=== PATIENT | female | born 1940 | race Caucasian/White ===

== ENCOUNTER 2016-07-11 20:37 | Inpatient (IN) | payer OTHER, MEDICARE ==
[~2016-07-11] VITALS: Ht 165.1 cm; Wt 81.4 kg
[2016-07-11 20:47] VITALS: BP 106/62; PULSE 87; RESP 18; TEMP 97.9; O2SAT 96
[2016-07-11] MEDS ORDERED: SODIUM CHLOR 0.9% 1000 ML INJ 1,000 ML IV SCH (20:55)
--- NOTE | 2016-07-11 20:59 | PD ---
HPI Chief Complaint: GI Complaint Time Seen by Provider: 20:55 Travel History International Travel<30 days: No Contact w/Intl Traveler<30days: No Traveled to known affect area: No History of Present Illness HPI 75yo F with PMH of IDDM, CAD s/p AICD presents to the ED with c/o black diarrhea , nausea and episode of hematemesis today. As per EVAC, pt's blood pressure dropped to systolic in the 80s and was given NS IVF. BP is 106/62 with HR 109 here. Pt denies any history of GI bleed, cirrhosis, alcoholism, abdominal pain or chest pain. Pt has mild sob. PFSH Past Medical History High Cholesterol: Yes Diabetes: Yes Patient Takes Glucophage: No Hypertension: Yes ?: Not Past Surgical History Cardiac Surgery: Yes (OPEN HEART ) Pacemaker: Yes Social History Alcohol Use: No Tobacco Use: No Substance Use: No Allergies-Medications (Allergen,Severity, Reaction): Coded Allergies: No Known Allergies (Unverified , 07/11/16) Reported Meds & Prescriptions Reported Meds & Active Scripts Active Review of Systems Except as stated in HPI: all other systems reviewed are Neg Physical Exam Narrative GENERAL: 75yo F in mild distress. SKIN: Warm and dry. HEAD: Atraumatic. Normocephalic. EYES: Pupils equal and round. No scleral icterus. No injection or drainage. ENT: No nasal bleeding or discharge. Mucous membranes pink and moist. NECK: Trachea midline. No JVD. CARDIOVASCULAR: Regular rate and rhythm. No murmur appreciated. RESPIRATORY: No accessory muscle use. Clear to auscultation. Breath sounds equal bilaterally. GASTROINTESTINAL: Abdomen soft, non-tender, nondistended. No rebound tenderness or guarding. RECTAL: Black stool. +Hemaprompt. MUSCULOSKELETAL: No obvious deformities. No clubbing. No cyanosis. No edema. NEUROLOGICAL: Awake and alert. No obvious cranial nerve deficits. Motor grossly within normal limits. Normal speech. PSYCHIATRIC: Appropriate mood and affect; insight and judgment normal. Data Data Last Documented VS Vital Signs Date Time Temp Pulse Resp B/P Pulse Ox O2 Delivery O2 Flow Rate FiO2 07/11/16 20:47 97.9 87 18 106/62 96 Orders Basic Metabolic Panel (Bmp) (07/11/16 20:55) Complete Blood Count With Diff (07/11/16 20:55) Prothrombin Time / Inr (Pt) (07/11/16 20:55) Act Partial Throm Time (Ptt) (07/11/16 20:55) Type And Screen (07/11/16 20:55) Chest, Single Ap (07/11/16 20:55) Ecg Monitoring (07/11/16 20:55) Iv Access Insert/Monitor (07/11/16 20:55) Oximetry (07/11/16 20:55) Ondansetron Inj (Zofran Inj) (07/11/16 21:00) Sodium Chlor 0.9% 1000 Ml Inj (Ns 1000 M (07/11/16 20:55) Sodium Chloride 0.9% Flush (Ns Flush) (07/11/16 21:00) Octreotide Inj (Sandostatin Inj) (07/11/16 21:00) Pantoprazole Inj (Protonix Inj) (07/11/16 21:00) Pantoprazole Inj (Protonix Inj) (07/11/16 21:00) Electrocardiogram (07/11/16 ) Troponin I (07/11/16 20:55) Insulin Human Regular Inj (Novolin R Inj (07/11/16 22:15) Sodium Chlor 0.9% 1000 Ml Inj (Ns 1000 M (07/11/16 22:15) Place In Observation (07/11/16 ) Vital Signs (Adult) Q4H (07/11/16 22:18) Activity Oob With Assistance (07/11/16 22:18) ^ [employer] Professor / Telemetry .CONTINUOUS (07/11/16 22:18) Diet Npo (07/12/16 Breakfast) Sodium Chloride 0.9% Flush (Ns Flush) (07/11/16 22:30) Sodium Chloride 0.9% Flush (Ns Flush) (07/12/16 09:00) Basic Metabolic Panel (Bmp) (07/12/16 06:00) Complete Blood Count With Diff (07/12/16 06:00) Scd Bilateral/Knee High IRIS.BID (07/11/16 22:18) Naloxone Inj (Narcan Inj) (07/11/16 22:30) Admit Order (Ed Use Only) (07/11/16 22:19) Consult Gastroenterology (07/11/16 ) Labs Laboratory Tests Test 07/11/16 21:05 White Blood Count 11.7 TH/MM3 Red Blood Count 3.15 MIL/MM3 Hemoglobin 10.1 GM/DL Hematocrit 30.8 % Mean Corpuscular Volume 97.8 FL Mean Corpuscular Hemoglobin 32.1 PG Mean Corpuscular Hemoglobin 32.8 % Concent Red Cell Distribution Width 14.6 % Platelet Count 189 TH/MM3 Mean Platelet Volume 8.7 FL Neutrophils (%) (Auto) 87.6 % Lymphocytes (%) (Auto) 9.9 % Monocytes (%) (Auto) 2.1 % Eosinophils (%) (Auto) 0.0 % Basophils (%) (Auto) 0.4 % Neutrophils # (Auto) 10.3 TH/MM3 Lymphocytes # (Auto) 1.2 TH/MM3 Monocytes # (Auto) 0.2 TH/MM3 Eosinophils # (Auto) 0.0 TH/MM3 Basophils # (Auto) 0.0 TH/MM3 CBC Comment DIFF FINAL Differential Comment Prothrombin Time 12.1 SEC Prothromb Time International 1.1 RATIO Ratio Activated Partial 25.8 SEC Thromboplast Time Sodium Level 139 MEQ/L Potassium Level 5.4 MEQ/L Chloride Level 103 MEQ/L Carbon Dioxide Level 25.1 MEQ/L Anion Gap 11 MEQ/L Blood Urea Nitrogen 75 MG/DL Creatinine 1.91 MG/DL Estimat Glomerular Filtration 26 ML/MIN Rate Random Glucose 408 MG/DL Calcium Level 8.2 MG/DL Troponin I LESS THAN 0.02 NG/ML Blood Type A POSITIVE Antibody Screen NEGATIVE Blood Bank Comment MDM Medical Decision Making Medical Screen Exam Complete: Yes Emergency Medical Condition: Yes Interpretation(s) EKG: Paced rhythm. LAD. No signs of ischemia. Last Impressions Chest X-Ray 07/11/162054 Signed Impressions: Service Date/Time: Monday, July 11, 2016 21:04 - CONCLUSION: No acute disease. Gian Lora MD Laboratory Tests Test 07/11/16 21:05 White Blood Count 11.7 TH/MM3 (4.0-11.0) Red Blood Count 3.15 MIL/MM3 (4.00-5.30) Hemoglobin 10.1 GM/DL (11.6-15.3) Hematocrit 30.8 % (35.0-46.0) Mean Corpuscular Volume 97.8 FL (80.0-100.0) Mean Corpuscular Hemoglobin 32.1 PG (27.0-34.0) Mean Corpuscular Hemoglobin 32.8 % Concent (32.0-36.0) Red Cell Distribution Width 14.6 % (11.6-17.2) Platelet Count 189 TH/MM3 (150-450) Mean Platelet Volume 8.7 FL (7.0-11.0) Neutrophils (%) (Auto) 87.6 % (16.0-70.0) Lymphocytes (%) (Auto) 9.9 % (9.0-44.0) Monocytes (%) (Auto) 2.1 % (0.0-8.0) Eosinophils (%) (Auto) 0.0 % (0.0-4.0) Basophils (%) (Auto) 0.4 % (0.0-2.0) Neutrophils # (Auto) 10.3 TH/MM3 (1.8-7.7) Lymphocytes # (Auto) 1.2 TH/MM3 (1.0-4.8) Monocytes # (Auto) 0.2 TH/MM3 (0-0.9) Eosinophils # (Auto) 0.0 TH/MM3 (0-0.4) Basophils # (Auto) 0.0 TH/MM3 (0-0.2) CBC Comment DIFF FINAL Differential Comment Prothrombin Time 12.1 SEC (9.8-11.6) Prothromb Time International 1.1 RATIO Ratio Activated Partial 25.8 SEC Thromboplast Time (24.3-30.1) Sodium Level 139 MEQ/L (136-145) Potassium Level 5.4 MEQ/L (3.5-5.1) Chloride Level 103 MEQ/L (98-107) Carbon Dioxide Level 25.1 MEQ/L (21.0-32.0) Anion Gap 11 MEQ/L (5-15) Blood Urea Nitrogen 75 MG/DL (7-18) Creatinine 1.91 MG/DL (0.50-1.00) Estimat Glomerular Filtration 26 ML/MIN (>89) Rate Random Glucose 408 MG/DL (74-106) Calcium Level 8.2 MG/DL (8.5-10.1) Troponin I LESS THAN 0.02 NG/ML (0.02-0.05) Blood Type A POSITIVE Antibody Screen NEGATIVE Blood Bank Comment Differential Diagnosis Upper GI bleed vs. perforated peptic ulcer Narrative Course 75yo F with black diarrhea and hematemesis today. BP initially low as per EVAC and responded to IVF. Hemaprompt positive. Labs reviewed, mild leukocytosis at 11.7. H/H 10.1/30.8. K mildly elevated at 5.4. Glucose is 408 with no increased anion gap and CO2 25.1. Will treat with regular insulin 6 units and another liter of IVF NS. This will also decreased potassium level. Troponin negative. CXR showed no free air. Pt given protonix bolus and protonix drip. Discussed with GI Dr. Ernst early when pt arrived. Pt accepted for GI bleed to medicine. HemaPrompt Point of Care Internal Pos. & Neg. Controls: Passed Fecal Specimen Occult Blood: Positive Diagnosis Primary Impression: GI bleed Qualified Code: K92.2 - Gastrointestinal hemorrhage, unspecified gastrointestinal hemorrhage type Admitting Information Admitting Physician Requests: Admit Lydia Trevino DO Jul 11, 2016 20:59 Lydia Trevino DO Jul 11, 2016 20:59
[2016-07-11] MEDS ORDERED: PANTOPRAZOLE INJ 80 MG in SODIUM CHLORIDE 0.9% INJ 35 ML IV ONE (21:00)
[2016-07-11] MEDS ORDERED: OCTREOTIDE INJ 500 MCG in SODIUM CHLORID 0.9% 500 ML INJ 500 ML IV SCH (21:00)
[2016-07-11] MEDS ORDERED: SODIUM CHLORIDE 0.9% FLUSH 5 ML FLUSH IVF PRN (21:00)
[2016-07-11] MEDS ORDERED: ONDANSETRON HCL 4 MG/2 ML VIAL IVP ONE (21:00)
[2016-07-11 21:26] LABS: AUTOMATED NEUTROPHIL # 10.3 TH/MM3 (1.8-7.7); BASOPHIL % 0.4 % (0.0-2.0); HEMATOCRIT 30.8 % (35.0-46.0); HEMO FLAGS DIFF FINAL; LYMPH % 9.9 % (9.0-44.0); LYMPHOCYTE # 1.2 TH/MM3 (1.0-4.8); MEAN CELL VOLUME 97.8 FL (80.0-100.0); MEAN CORPUSCULAR HEMOGLOBIN 32.1 PG (27.0-34.0); MEAN CORPUSCULAR HGB CONC 32.8 % (32.0-36.0); MONO % 2.1 % (0.0-8.0); NEUT % 87.6 % (16.0-70.0); PLATELET COUNT 189 TH/MM3 (150-450); RED BLOOD COUNT 3.15 MIL/MM3 (4.00-5.30); RED CELL DISTRIBUTION WIDTH 14.6 % (11.6-17.2); WHITE BLOOD COUNT 11.7 TH/MM3 (4.0-11.0)
[2016-07-11 21:38] LABS: APTT (PATIENT) 25.8 SEC (24.3-30.1); INTERNATIONAL NORMALIZED RATIO 1.1 RATIO; PROTHROMBIN TIME - PATIENT 12.1 SEC (9.8-11.6)
--- NOTE | 2016-07-11 21:39 | RADRPT ---
EXAM DATE/TIME: 07/11/2016 21:04 [place] COMPARISON: No previous studies available for comparison. INDICATIONS : Chest pain. MEDICAL HISTORY : None. SURGICAL HISTORY : CABG. Pacemaker. ENCOUNTER: Initial ACUITY: 1 day PAIN SCORE: 6/10 LOCATION: Bilateral chest FINDINGS: 2 AP portable erect views of the chest were obtained and demonstrate a left subclavian transvenous pa cer in place. The patient status post median sternotomy. There are no confluent infiltrates or effusi ons. The heart and mediastinal structures are within normal limits. The bony thorax is unremarkable. CONCLUSION: No acute disease. Gian Lora MD on July 11, 2016 at 21:37 Board Certified Radiologist. This report was verified electronically.
[2016-07-11 22:02] LABS: ANION GAP 11 MEQ/L (5-15); BICARBONATE 25.1 MEQ/L (21.0-32.0); BLOOD UREA NITROGEN 75 MG/DL (7-18); CHLORIDE 103 MEQ/L (98-107); GLOMERULAR FILTRATION RATE 26 ML/MIN (>89); POTASSIUM 5.4 MEQ/L (3.5-5.1); SODIUM (NA) 139 MEQ/L (136-145)
[2016-07-11] MEDS: PANTOPRAZOLE INJ 80 MG in SODIUM CHLORIDE 0.9% INJ 100 ML IV SCH (22:05)
[2016-07-11] MEDS ORDERED: SODIUM CHLOR 0.9% 1000 ML INJ 1,000 ML IV ONE (22:15)
[2016-07-11] MEDS ORDERED: INSULIN HUMAN REGULAR 1,000 UNITS/10 ML VIAL SQ ONE (22:15)
[2016-07-11] MEDS ORDERED: GLUCAGON 1 MG/ML VIAL OTHER PRN (22:30)
[2016-07-11] MEDS ORDERED: NALOXONE HCL 0.4 MG/ML AMP IV PRN (22:30)
[2016-07-11] MEDS ORDERED: SODIUM CHLORIDE 0.9% FLUSH 5 ML FLUSH FLUSH PRN (22:30)
[2016-07-11] MEDS ORDERED: DEXTROSE 50% IN WATER 50 ML VIAL(D50) IV PUSH PRN (22:30)
[2016-07-11] MEDS: DEXT 5%-NACL 0.9% 1000 ML INJ 1,000 ML IV SCH (23:49)
[2016-07-12] VITALS (16 sets, daily range): BP systolic 94–118; BP diastolic 48–70; PULSE 70–102; RESP 15–20; TEMP 98.5–99.6; O2SAT 93–98
--- NOTE | 2016-07-12 02:55 | HHI.HP ---
[facility] Service [facility] Primary Care Physician Unknown Admission Diagnosis GI bleed Diagnoses: Travel History International Travel<30 Days: No Contact w/Intl Traveler <30 Da: No Traveled to Known Affected Are: No Past Family Social History Allergies: Coded Allergies: No Known Allergies (Unverified , 07/11/16) Physical Exam Vital Signs Vital Signs Date Time Temp Pulse Resp B/P Pulse Ox O2 Delivery O2 Flow Rate FiO2 07/12/16 00:22 93 18 118/64 97 Nasal Cannula 2 07/11/16 20:47 97.9 87 18 106/62 96 Physical Exam GENERAL: This is a well-nourished, well-developed patient, in no apparent distress. SKIN: No rashes, ecchymoses or lesions. Cool and dry. HEAD: Atraumatic. Normocephalic. No temporal or scalp tenderness. EYES: Pupils equal round and reactive. Extraocular motions intact. No scleral icterus. No injection or drainage. ENT: Nose without bleeding, purulent drainage or septal hematoma. Throat without erythema, tonsillar hypertrophy or exudate. Uvula midline. Airway patent. NECK: Trachea midline. No JVD or lymphadenopathy. Supple, nontender, no meningeal signs. CARDIOVASCULAR: Regular rate and rhythm without murmurs, gallops, or rubs. RESPIRATORY: Clear to auscultation. Breath sounds equal bilaterally. No wheezes , rales, or rhonchi. GASTROINTESTINAL: Abdomen soft, non-tender, nondistended. No hepato-splenomegaly , or palpable masses. No guarding. MUSCULOSKELETAL: Extremities without clubbing, cyanosis, or edema. No joint tenderness, effusion, or edema noted. No calf tenderness. Negative Homans sign bilaterally. NEUROLOGICAL: Awake and alert. Cranial nerves II through XII intact. Motor and sensory grossly within normal limits. Five out of 5 muscle strength in all muscle groups. Normal speech. Laboratory Laboratory Tests Test 07/11/16 21:05 White Blood Count 11.7 Red Blood Count 3.15 Hemoglobin 10.1 Hematocrit 30.8 Mean Corpuscular Volume 97.8 Mean Corpuscular Hemoglobin 32.1 Mean Corpuscular Hemoglobin 32.8 Concent Red Cell Distribution Width 14.6 Platelet Count 189 Mean Platelet Volume 8.7 Neutrophils (%) (Auto) 87.6 Lymphocytes (%) (Auto) 9.9 Monocytes (%) (Auto) 2.1 Eosinophils (%) (Auto) 0.0 Basophils (%) (Auto) 0.4 Neutrophils # (Auto) 10.3 Lymphocytes # (Auto) 1.2 Monocytes # (Auto) 0.2 Eosinophils # (Auto) 0.0 Basophils # (Auto) 0.0 CBC Comment DIFF FINAL Differential Comment Prothrombin Time 12.1 Prothromb Time International 1.1 Ratio Activated Partial 25.8 Thromboplast Time Sodium Level 139 Potassium Level 5.4 Chloride Level 103 Carbon Dioxide Level 25.1 Anion Gap 11 Blood Urea Nitrogen 75 Creatinine 1.91 Estimat Glomerular Filtration 26 Rate Random Glucose 408 Calcium Level 8.2 Troponin I LESS THAN 0.02 Blood Type A POSITIVE Antibody Screen NEGATIVE Blood Bank Comment Result Diagram: 07/11/16210407/11/162104 Mary Werner MD Jul 12, 2016 02:55
--- NOTE | 2016-07-12 02:56 | HHI.HP ---
[facility] Admission Diagnosis GI bleed Diagnoses: Chief Complaint: Black color stool Travel History International Travel<30 Days: No Contact w/Intl Traveler <30 Da: No Traveled to Known Affected Are: No History of Present Illness History from patient, ER physician communication, interview of medical records. Patient reported that for the past 24 hours, she has been having black color stools. She stated that she did not want to come to hospital but her friend forced her to come here. She reports she was also quite dizzy and actually had a near syncope episode while in shower. She stated she caught herself and held onto the shower curtain. She did not pass out. She did not hit her head. She also reports of vomiting coffee-ground color vomits together with this. When asked, any time she had types of episodes, she stated she was really not able to count at all. She denies any abdominal pains with this. Patient is on Plavix at home. She stated this was started about a year ago after her heart surgery. She stated she had some valve replacement done at [facility]. She states that she had the left side of her heart with bigger chambers and this was one of the reasons why she needed the surgery. She really is not able to tell me any other specific diagnoses regarding her cardiac history. She states to ask her supervisor extruding department Dr. Martin. She is not on diuretics at home. She however does have AICD. She is unsure whether this was placed due to cardiac arrhythmia or cardiomyopathy. Per ER report, patient was quite hypotensive while on ambulance. She was given normal saline fluid boluses by EMS. By the time she arrived to ER, her blood pressure was 106/62. Patient however reports of history of hypertension for which she takes antihypertensives at home. She was not tachycardic in ER. Review of Systems Constitutional: COMPLAINS OF: Fatigue, Night Sweats, DENIES: Diaphoretic episodes, Fever, Weight gain, Weight loss, Dizziness Respiratory: DENIES: Apneas, Cough, Wheezing, Hemoptysis, Sputum production, Shortness of breath Cardiovascular: DENIES: Chest pain, Palpitations, Syncope, Dyspnea on Exertion , PND, Lower Extremity Edema, Orthopnea Gastrointestinal: COMPLAINS OF: Black stools, Nausea, Vomiting, DENIES: Abdominal pain, Bloody stools, Constipation, Diarrhea Genitourinary: DENIES: Urinary frequency, Urinary incontinence, Urgency, Hematuria, Dysuria, Nocturia Musculoskeletal: DENIES: Joint pain, Muscle aches, Stiffness, Joint Swelling, Back pain, Neck pain Hematologic/lymphatic: COMPLAINS OF: Bruising Neurologic: DENIES: Abnormal gait, Headache, Localized weakness, Paresthesias, Seizures Past Family Social History Past Medical History Hypertension Diabetes COPD Depression Valvular heart diseasestatus post repair versus replacement about a year ago Status post AICD access status post pacemaker placement Past Surgical History Valvular heart disease surgery. AICD/pacemaker placements. Cholecystectomy. Tonsillectomy. Reported Medications Patient's medications list on EMRreviewed. Allergies: Coded Allergies: No Known Allergies (Unverified , 07/11/16) Family History Denies family history of medical issues. Social History Reports she is still smoking cigarettes. Stated she was smoking up to about 3 packs a day at times. Denies any alcohol abuse or drug abuse. Lives by herself. Still driving. Physical Exam Vital Signs Vital Signs Date Time Temp Pulse Resp B/P Pulse Ox O2 Delivery O2 Flow Rate FiO2 07/12/16 00:22 93 18 118/64 97 Nasal Cannula 2 07/11/16 20:47 97.9 87 18 106/62 96 Physical Exam GENERAL: This is a well-nourished, well-developed patient, in no apparent distress. SKIN: No rashes, ecchymoses or lesions. Cool and dry. Pallor of skin HEAD: Atraumatic. Normocephalic. No temporal or scalp tenderness. EYES: No scleral icterus. No injection or drainage. ENT: Nose without bleeding, purulent drainage or septal hematoma. Airway patent. Dry oral mucosa NECK: Trachea midline. No JVD Supple, nontender, no meningeal signs. CARDIOVASCULAR: Regular rate and rhythm without murmurs, gallops, or rubs. RESPIRATORY: Clear to auscultation. Breath sounds equal bilaterally. No wheezes , rales, or rhonchi. GASTROINTESTINAL: Abdomen soft, non-tender, nondistended. . No guarding. MUSCULOSKELETAL: Extremities without clubbing, cyanosis, or edema. No calf tenderness. NEUROLOGICAL: Awake and alert. . Motor and sensory grossly within normal limits Normal speech. Laboratory Laboratory Tests Test 07/11/16 21:05 White Blood Count 11.7 Red Blood Count 3.15 Hemoglobin 10.1 Hematocrit 30.8 Mean Corpuscular Volume 97.8 Mean Corpuscular Hemoglobin 32.1 Mean Corpuscular Hemoglobin 32.8 Concent Red Cell Distribution Width 14.6 Platelet Count 189 Mean Platelet Volume 8.7 Neutrophils (%) (Auto) 87.6 Lymphocytes (%) (Auto) 9.9 Monocytes (%) (Auto) 2.1 Eosinophils (%) (Auto) 0.0 Basophils (%) (Auto) 0.4 Neutrophils # (Auto) 10.3 Lymphocytes # (Auto) 1.2 Monocytes # (Auto) 0.2 Eosinophils # (Auto) 0.0 Basophils # (Auto) 0.0 CBC Comment DIFF FINAL Differential Comment Prothrombin Time 12.1 Prothromb Time International 1.1 Ratio Activated Partial 25.8 Thromboplast Time Sodium Level 139 Potassium Level 5.4 Chloride Level 103 Carbon Dioxide Level 25.1 Anion Gap 11 Blood Urea Nitrogen 75 Creatinine 1.91 Estimat Glomerular Filtration 26 Rate Random Glucose 408 Calcium Level 8.2 Troponin I LESS THAN 0.02 Blood Type A POSITIVE Antibody Screen NEGATIVE Blood Bank Comment Result Diagram: 07/11/16210407/11/162104 Imaging Last 48 hours Impressions Chest X-Ray 07/11/162054 Signed Impressions: Service Date/Time: Monday, July 11, 2016 21:04 - CONCLUSION: No acute disease. Gian Lora MD Assessment and Plan Problem List: (1) GI bleed ICD Code: K92.2 Status: Acute (2) Hypotension ICD Code: I95.9 Status: Acute Assessment and Plan Impression: Upper GI bleed Mild hemorrhagic shockresolved with fluid resuscitation by EMS. Plan: Serial hemoglobin hematocrit. Start patient on Protonix IV drip. GI consult. Transfuse 3 units of PRBC since repeat hemoglobin hematocrit did drop and patient's history is clearly that of GI bleed. Patient was maintaining hemoglobin falsely upon arrival because she was dehydrated and hemoconcentrated. Continue IV fluids with D5 half normal saline at 42 cc per hour. Hold antihypertensives. Watch for fluid overload. Patient does have an AICD. She is not sure why she has it. Possible she does have cardiomyopathy from her description. We'll monitor fingersticks. No long-acting insulin or oral hypoglycemics. Consult patient's supervisor extruding department since patient would need to be off Plavix due to this acute GI bleed. We'll need to coordinate between her supervisor extruding department and GI asked to see timing of restart of Plavix. DVT prophylaxiswith SCD. GI prophylaxis on pantoprazole. Discussed Condition With Patient, ER physician, patient's nurse Physician Certification 2 Midnight Certification Type: Admission for Inpatient Services Order for Inpatient Services The services are ordered in accordance with Medicare regulations or non- Medicare payer requirements, as applicable. In the case of services not specified as inpatient-only, they are appropriately provided as inpatient services in accordance with the 2-midnight benchmark. Estimated LOS (days): 3 days is the estimated time the patient will need to remain in the hospital, assuming treatment plan goals are met and no additional complications. Post-Hospital Plan: Home Mary Werner MD Jul 12, 2016 02:56
[2016-07-12 03:05] LABS: HEMATOCRIT 21.6 % (35.0-46.0); REVIEW FLAG FINAL
[2016-07-12] MEDS ORDERED: FUROSEMIDE 20 MG/2 ML VIAL IV PUSH PRN (03:15)
[2016-07-12 04:00] LABS: BICARBONATE 24.4 MEQ/L (21.0-32.0); POTASSIUM 4.7 MEQ/L (3.5-5.1)
[2016-07-12 04:07] LABS: AUTOMATED NEUTROPHIL # 8.3 TH/MM3 (1.8-7.7); BASOPHIL # 0.1 TH/MM3 (0-0.2); BASOPHIL % 0.4 % (0.0-2.0); EOSINOPHIL % 0.1 % (0.0-4.0); HEMATOCRIT 22.7 % (35.0-46.0); HEMO FLAGS DIFF FINAL; LYMPH % 22.1 % (9.0-44.0); LYMPHOCYTE # 2.5 TH/MM3 (1.0-4.8); MEAN CELL VOLUME 99.5 FL (80.0-100.0); MEAN CORPUSCULAR HEMOGLOBIN 32.4 PG (27.0-34.0); MEAN CORPUSCULAR HGB CONC 32.6 % (32.0-36.0); MONO % 5.3 % (0.0-8.0); NEUT % 72.1 % (16.0-70.0); PLATELET COUNT 151 TH/MM3 (150-450); RED BLOOD COUNT 2.28 MIL/MM3 (4.00-5.30); RED CELL DISTRIBUTION WIDTH 14.6 % (11.6-17.2); WHITE BLOOD COUNT 11.5 TH/MM3 (4.0-11.0)
[2016-07-12] MEDS: PANTOPRAZOLE INJ 80 MG in SODIUM CHLORIDE 0.9% INJ 100 ML IV SCH (07:31)
[2016-07-12] MEDS ORDERED: DIAZ5TAB PO (07:32)
[2016-07-12] MEDS ORDERED: METO25TA3 PO (07:32)
[2016-07-12] MEDS ORDERED: LISI10TA3 PO ×2 (07:32→07:34)
[2016-07-12] MEDS ORDERED: OXYC-392 PO (07:32)
[2016-07-12] MEDS ORDERED: LANTUS2P (07:34)
[2016-07-12] MEDS ORDERED: FURO20TA PO (07:34)
[2016-07-12] MEDS ORDERED: ATOR20TA15 PO (07:34)
[2016-07-12] MEDS ORDERED: GABA400C5 PO (07:34)
[2016-07-12] MEDS ORDERED: NOVOINJ3 SQ (07:34)
[2016-07-12] MEDS: SODIUM CHLORIDE 0.9% FLUSH 5 ML FLUSH FLUSH SCH ×2 (09:00→21:31)
--- NOTE | 2016-07-12 10:35 | PD.CONS ---
HPI History of Present Illness This is a 75 year old female patient on Plavix, who came to the ER for evaluation of black tarry stool with associated dizziness and a near syncopal episode. She reports that she started having black tarry stool. She denies any associated nausea, vomiting, abdominal pain, heartburn, or reflux. She reports that her appetite has been okay, but that she didn't have much of an appetite yesterday. She did have associated dizziness and weakness, that seemed to be aggravated by activity. She reports a remote history of peptic ulcer disease, at least 50 years ago. She has never had a egd/colonoscopy. No family hx of esophageal, gastric, or colorectal cancer. She does not take any Aleve or ibuprofen. She denies any ETOH use. (Zulema Koroma) PFSH Past Medical History Hypertension Diabetes COPD Depression Valvular heart diseasestatus post repair versus replacement about a year ago Status post AICD access status post pacemaker placement Past Surgical History Valvular heart disease surgery. AICD/pacemaker placements. Cholecystectomy. Tonsillectomy. (Zulema Koroma) Coded Allergies: No Known Allergies (Unverified , 07/11/16) Medications Allergies Coded Allergies Type Severity Reaction Last Updated Verified No Known Allergies 07/11/16 No Active Scripts Medications Dose Route/Sig Days Date Category Lantus Inj (Insulin Glargine) 100 Unit/Ml Inj 07/12/16 Reported Novolog Flexpen Inj (Insulin Aspart) 300 Unit/3 Ml Pen 1 Units SQ 07/12/16 Reported Gabapentin 400 Mg Cap 400 Cap PO HS 07/12/16 Reported Atorvastatin (Atorvastatin Calcium) 20 Mg Tab 20 Mg PO HS 07/12/16 Reported Furosemide 20 Mg Tab 20 Mg PO BID 07/12/16 Reported Lisinopril 10 Mg Tab 10 Mg PO DAILY 07/12/16 Reported Lisinopril 10 Mg Tab 10 Mg PO DAILY 07/12/16 Reported Metoprolol Tartrate 25 Mg Tab 25 Mg PO BID 07/12/16 Reported Diazepam 5 Mg Tab 5 Mg PO BID PRN 07/12/16 Reported Oxycodone (Oxycodone HCl) 5 Mg Tab 5 Mg PO Q4H PRN 07/12/16 Reported Family History Denies family history of medical issues. Social History Reports she is still smoking cigarettes. Stated she was smoking up to about 3 packs a day at times. Denies any alcohol abuse or drug abuse. (Zulema Koroma) Review of Systems Constitutional: COMPLAINS OF: Fatigue, DENIES: Weight loss, Change in appetite Respiratory: DENIES: Cough Cardiovascular: DENIES: Chest pain Gastrointestinal: COMPLAINS OF: Black stools, Diarrhea, DENIES: Abdominal pain , Bloody stools, Constipation, Nausea, Vomiting, Heartburn, Hematemesis Musculoskeletal: COMPLAINS OF: Joint pain, DENIES: Back pain Hematologic/lymphatic: COMPLAINS OF: Bruising Neurologic: DENIES: Headache Psychiatric: DENIES: Confusion (Zulema Koroma) GI Exam Vitals I&O Vital Signs Date Time Temp Pulse Resp B/P Pulse Ox O2 Delivery O2 Flow Rate FiO2 07/12/16 10:19 98.7 102 15 111/67 98 07/12/16 09:20 98.7 102 15 111/67 98 Room Air 07/12/16 09:04 99.0 92 15 115/55 98 Room Air 07/12/16 08:05 99.6 97 16 94/48 98 Room Air 07/12/16 07:05 98.7 90 16 101/62 98 Room Air 07/12/16 06:56 85 18 97/53 97 3 07/12/16 05:58 87 18 98/53 95 Nasal Cannula 3 07/12/16 05:23 90 18 115/54 95 Nasal Cannula 3 07/12/16 04:58 99.0 70 18 98/52 95 Nasal Cannula 3 07/12/16 04:45 82 18 98/52 98 Nasal Cannula 3 07/12/16 03:00 83 18 110/70 96 Nasal Cannula 3 07/12/16 01:55 76 18 105/60 96 Nasal Cannula 3 07/12/16 00:22 93 18 118/64 97 Nasal Cannula 2 07/11/16 20:47 97.9 87 18 106/62 96 I/O 07/11/16 07/11/16 07/11/16 07/12/16 07/12/16 07/12/16 07:00 15:00 23:00 07:00 15:00 23:00 Intake Total 275 ml Balance 275 ml Intake Packed Cells 275 ml # Bowel Movements 3 Imaging Last Impressions Chest X-Ray 07/11/162054 Signed Impressions: Service Date/Time: Monday, July 11, 2016 21:04 - CONCLUSION: No acute disease. Gian Lora MD Laboratory Test 07/11/16 07/12/16 07/12/16 07/12/16 21:05 02:50 02:54 03:22 White Blood Count 11.7 TH/MM3 11.5 TH/MM3 Red Blood Count 3.15 MIL/MM3 2.28 MIL/MM3 Hemoglobin 10.1 GM/DL 7.1 GM/DL 7.4 GM/DL Hematocrit 30.8 % 21.6 % 22.7 % Mean Corpuscular Volume 97.8 FL 99.5 FL Mean Corpuscular Hemoglobin 32.1 PG 32.4 PG Mean Corpuscular Hemoglobin 32.8 % 32.6 % Concent Red Cell Distribution Width 14.6 % 14.6 % Platelet Count 189 TH/MM3 151 TH/MM3 Mean Platelet Volume 8.7 FL 9.0 FL Neutrophils (%) (Auto) 87.6 % 72.1 % Lymphocytes (%) (Auto) 9.9 % 22.1 % Monocytes (%) (Auto) 2.1 % 5.3 % Eosinophils (%) (Auto) 0.0 % 0.1 % Basophils (%) (Auto) 0.4 % 0.4 % Neutrophils # (Auto) 10.3 TH/MM3 8.3 TH/MM3 Lymphocytes # (Auto) 1.2 TH/MM3 2.5 TH/MM3 Monocytes # (Auto) 0.2 TH/MM3 0.6 TH/MM3 Eosinophils # (Auto) 0.0 TH/MM3 0.0 TH/MM3 Basophils # (Auto) 0.0 TH/MM3 0.1 TH/MM3 CBC Comment DIFF FINAL DIFF FINAL Differential Comment Prothrombin Time 12.1 SEC Prothromb Time International 1.1 RATIO Ratio Activated Partial 25.8 SEC Thromboplast Time Sodium Level 139 MEQ/L 143 MEQ/L Potassium Level 5.4 MEQ/L 4.7 MEQ/L Chloride Level 103 MEQ/L 111 MEQ/L Carbon Dioxide Level 25.1 MEQ/L 24.4 MEQ/L Anion Gap 11 MEQ/L 8 MEQ/L Blood Urea Nitrogen 75 MG/DL 80 MG/DL Creatinine 1.91 MG/DL 1.84 MG/DL Estimat Glomerular Filtration 26 ML/MIN 27 ML/MIN Rate Random Glucose 408 MG/DL 328 MG/DL Calcium Level 8.2 MG/DL 7.7 MG/DL Troponin I LESS THAN 0.02 NG/ML Blood Type A POSITIVE A POSITIVE A POSITIVE Antibody Screen NEGATIVE Blood Bank Comment Crossmatch Leukocyte-Reduced Red Blood Cells Physical Examination HEENT: Normocephalic; atraumatic; no jaundice. CHEST: CTA CARDIAC: RRR ABDOMEN: Soft, nondistended, nontender; no hepatosplenomegaly; bowel sounds are present in all four quadrants. EXTREMITIES: No clubbing, cyanosis, or edema. SKIN: Normal; no rash; no jaundice. SOCIAL MEDIA JOB TITLES: No focal deficits; alert and oriented times three. (Zulema Koroma) Assessment and Plan Plan ASSESSMENT: - Upper GIB, Melena. Pt on Plavix. Remote hx of PUD- 50 years ago. Never had egd/colonoscopy. Started having melena yesterday, no other GI symptoms, but generalized weakness and dizziness. Protonix. HH 7.4/ 22.7. - Anemia secondary to acute blood loss. S/P PRBC. HH 7.4/.7. - CAD, HTN, DM per primary PLAN: - Plan for egd today - Obtain consents - NPO - Protonix gtt - Monitor hh - Transfuse as necessary - Supportive care - Further recommendations to follow based on results of above - PT seen and examined by Dr. Johnson and myself and this note is written on his behalf (Zulema Koroma) Physician Comments Patient seen and examined Agree with above Continue with current supportive care Monitor labs EGD today (Madan Johnson MD) Zulema Koroma Jul 12, 2016 10:35 Madan Johnson MD Jul 12, 2016 22:13
[2016-07-12] MEDS ORDERED: SODIUM CHLOR 0.9% 1000 ML BAG IV ONE (11:56)
[2016-07-12] MEDS ORDERED: PROPOFOL 200 MG/20 ML AMP IV ONE (11:56)
--- NOTE | 2016-07-12 12:53 | PD.PROCEDR ---
GI Procedure REFERRING PHYSICIAN Dr. Reaves PROCEDURE PERFORMED EGD with biopsy INDICATION FOR PROCEDURE Melena and anemia PROCEDURE: The procedure, risks and benefits were discussed with Ms. oCuch and informed consent was obtained. Anesthesia sedated her with Diprivan. She was placed in the left lateral decubitus position. EGD: The Pentax videoscope was introduced through the oropharynx and advanced to the second portion of the duodenum under direct visualization. Retroflexion was performed in the stomach. FINDINGS: The esophagus this was unremarkable except for a small ulcer at the GE junction this was clean-based no visible vessel and the Z line appeared to be slightly irregular biopsies were taken from the irregular Z line and the ulcer The stomach this was normal no blood or bleeding was seen The duodenum this was normal ESTIMATED BLOOD LOSS: None SPECIMENS REMOVED: Biopsies from the GE junction COMPLICATIONS: None IMPRESSION: Gastroesophageal junction ulcer Irregular Z line PLAN: Await biopsy Recommend PPI Continue supportive care Monitor labs and transfuse as needed EGD in 2 months Madan Johnson MD Jul 12, 2016 12:52
[2016-07-12 14:02] LABS: HEMATOCRIT 27.2 % (35.0-46.0); REVIEW FLAG FINAL
--- NOTE | 2016-07-12 15:00 | EKG ---
Date Performed: 07/11/2016 Time Performed: 21:58:14 PTAGE: 75 years EKG: ELECTRONIC VENTRICULAR PACEMAKER PROLONGED CORRECTED QT INTERVAL ABNORMAL RHYTHM ECG NO PREVIOUS TRACING DOCTOR: Zion Pang Interpretating Date/Time 07/12/2016 15:00:28
--- NOTE | 2016-07-12 15:59 | MB ---
cc: DAVID SIMPSON DATE OF CONSULTATION: 07/12/2016 DATE OF : 1940 REASON FOR CONSULTATION: Resumption of clopidogrel. HISTORY OF PRESENT ILLNESS: 75-year female with past medical history significant for diabetes, hypertension , COPD, depression and cardiomyopathy status post AICD placement ([employer]) mitral valve replacement with bioprosthesis in 2013 and a myectomy, the patient presented to the to the emergency department with black diarrhea and nausea and hematemesis also hypotensive. She was consulted to Gastroenterology for endoscopy which revealed a GI ulcer. She was also given blood. Currently she is in the room hemodynamically stable hemoglobin at this time is trending up after transfusion. She denies any chest pain, shortness of breath. She reports being compliant to the medication which includes Plavix. She denies any recent or history of stents in the past, other than the bioprosthesis. Cardiology has been consulted to give recommendations regarding clopidogrel resumption. REVIEW OF SYSTEMS Review of systems negative except for what is mentioned in HPI. PAST MEDICAL HISTORY 1. Hypertension 2. Diabetes 3. Chronic obstructive pulmonary disease 4. Depression 5. AICD 6. Cardiomyopathy. 7. Status post mitral valve replacement. PAST SURGICAL HISTORY Mitral valve replacement Hyperlipidemia Diabetes PAST SURGICAL HISTORY Mitral valve surgery Pacemaker placement SOCIAL HISTORY No alcohol. No tobacco. No substance use. ALLERGIES NO KNOWN DRUG ALLERGIES. MEDICATIONS: home medication atorvastatin 20 Lasix 20 lisinopril 10 Metoprolol 25 According to the patient. She is also taking Plavix. PHYSICAL EXAMINATION: VITAL SIGNS: Temperature 98, respiratory rate 90, heart rate 92, blood pressure 92/70, O2 sat 99% RA. IN GENERAL: Generally she is awake, alert, oriented x3 in no acute distress. NECK: No JVD noted carotid bruits. HEART: Regular rate and rhythm. No murmurs, rubs or gallops. LUNGS: Clear to auscultation bilaterally. ABDOMEN: Soft, positive bowel sounds. nondistended. EXTREMITIES: No cyanosis or edema. Pulses throughout. LABORATORY FINDINGS She has a hemoglobin of 9.2 trending up from 7.1, hematocrit 21.6 trending up to 27.2, platelet count of 151, INR 1.1. Chemistries sodium 143, potassium 4.3, BUN 80, creatinine 1.84, troponin less than 0.02. RADIOLOGIC: Endoscopy performed showed a gastrointestinal ulcer. EKG shows a ventricular paced rhythm. ASSESSMENT/PLAN 75-year-old female with known valvular disease status post mitral valve replacement 2014 bioprosthesis. Presents with severe anemia in the setting of hemorrhagic shock. Esophagogastroduodenoscopy revealed a GI ulcer, that has been successfully treated. She remains fairly hemodynamically stable. Given significant life threatening bleed I agree stopping clopidogrel/aspirin and continue her other medications as tolerated by blood pressure. Unclear reason she is on clopidogrel no history of recent stents per office records, she also denies recent PCI. She does not need chronic oral anticoagulation because she has a Bovine valve. Regarding the resumption of the Plavix I will relay that to gastro given recent significant GI bleed. Thank you for the opportunity to take part in the care of this patients care. MD MARIELA Grimm/natali /2:17 PM /3:37 PM MATILDA
[2016-07-12] MEDS: DEXT 5%-NACL 0.9% 1000 ML INJ 1,000 ML IV SCH (17:38)
[2016-07-12] MEDS ORDERED: ATORVASTATIN 20 MG TAB PO SCH (21:00)
[2016-07-12] MEDS: PANTOPRAZOLE SOD 40 MG DELAYED RELEASE TAB PO SCH (21:30)
[2016-07-13 00:05] VITALS: BP 95/54; PULSE 79; RESP 20; TEMP 98.1; O2SAT 95
[2016-07-13 02:33] LABS: HEMATOCRIT 26.7 % (35.0-46.0); MEAN CELL VOLUME 90.6 FL (80.0-100.0); MEAN CORPUSCULAR HGB CONC 34.2 % (32.0-36.0); PLATELET COUNT 102 TH/MM3 (150-450); RED BLOOD COUNT 2.95 MIL/MM3 (4.00-5.30); RED CELL DISTRIBUTION WIDTH 19.1 % (11.6-17.2); REVIEW FLAG FINAL; WHITE BLOOD COUNT 10.3 TH/MM3 (4.0-11.0)
[2016-07-13 03:19] LABS: MAGNESIUM 2.1 MG/DL (1.5-2.5); POTASSIUM 4.2 MEQ/L (3.5-5.1)
[2016-07-13 04:00] VITALS: BP 124/63; PULSE 77; RESP 20; TEMP 98.1; O2SAT 97
[2016-07-13 08:00] VITALS: BP 118/56; PULSE 79; RESP 20; TEMP 96.9; O2SAT 92
[2016-07-13] MEDS: SODIUM CHLORIDE 0.9% FLUSH 5 ML FLUSH FLUSH SCH (08:38)
[2016-07-13] MEDS: PANTOPRAZOLE SOD 40 MG DELAYED RELEASE TAB PO SCH (08:38)
[2016-07-13] MEDS ORDERED: PANT40TA3 PO (08:48)
--- NOTE | 2016-07-13 08:52 | HHI.PR ---
Subjective Remarks Follow-up for GI bleed related anemia. Patient is currently doing well. She could not sleep much last night. Denies any chest pain, shortness of breath, fever or chills. Denies any further GI bleed including melena or hematochezia. Objective Vitals Vital Signs Date Time Temp Pulse Resp B/P Pulse Ox O2 Delivery O2 Flow Rate FiO2 07/13/16 08:00 96.9 79 20 118/56 92 07/13/16 04:00 98.1 77 20 124/63 97 07/13/16 00:05 98.1 79 20 95/54 95 07/12/16 23:06 78 07/12/16 20:01 79 07/12/16 20:00 98.5 91 20 118/56 93 07/12/16 12:00 98.7 92 20 92/70 99 07/12/16 10:19 98.7 102 15 111/67 98 07/12/16 09:20 98.7 102 15 111/67 98 Room Air 07/12/16 09:04 99.0 92 15 115/55 98 Room Air I/O 07/12/16 07/12/16 07/12/16 07/13/16 07/13/16 07/13/16 07:00 15:00 23:00 07:00 15:00 23:00 Intake Total 275 ml 369 ml 1108 ml Balance 275 ml 369 ml 1108 ml Intake Oral 220 ml 940 ml IV Total 149 ml 168 ml Packed Cells 275 ml # Voids 2 3 # Bowel Movements 3 2 3 Result Diagram: 07/13/1622107/13/16221 Imaging Last Impressions Chest X-Ray 07/11/162054 Signed Impressions: Service Date/Time: Monday, July 11, 2016 21:04 - CONCLUSION: No acute disease. Gian Lora MD Objective Remarks GENERAL: Alert, oriented 3 no acute distress SKIN: Warm and dry. HEAD: Normocephalic. EYES: No scleral icterus. No injection or drainage. NECK: Supple, trachea midline. No JVD or lymphadenopathy. CARDIOVASCULAR: Regular rate and rhythm with a systolic murmur. no gallops, or rubs. RESPIRATORY: Breath sounds equal bilaterally. No accessory muscle use. GASTROINTESTINAL: Abdomen soft, non-tender, nondistended. MUSCULOSKELETAL: No cyanosis, or edema. BACK: Nontender without obvious deformity. No CVA tenderness. Procedures EGD 07/12/2016. A/P Problem List: (1) GI bleed ICD Code: K92.2 Status: Acute (2) Hypotension ICD Code: I95.9 Status: Acute Assessment and Plan Ms. Couch is a pleasant 75-year-old female with a history of cardiomyopathy, MVR who presents to the emergency department on 07/12/2016 due to GI bleed, hypotension. Hypotension resolved after she received fluid. Patient underwent EGD on 07/12/2016 which shows cholesterol esophageal junction ulcer. - Acute GI blood loss anemia - Status post EGD which shows GE junction ulcer. Two-month follow-up EGD recommended - Discussed with GI attending. Patient can start Plavix today. Start aspirin in 2 weeks - Cardiomyopathy - Mitral valve replacement - Continue home medications on discharge. DNR. Discharge patient to home Condition on discharge: Improved Diabetic Diet as tolerated Ad Sugar activity Rx written: - Protonix 40mg BID - START Aspirin 81mg daily on 07/27/2016 - Can resume Plavix today 07/13/2016. Total time spent more than 30 minutes including discussing with patient, coordinating with Gastroenterology. Follow-up with primary care physician within one week and GI follow up in 2 weeks. Problem Qualifiers (1) GI bleed: Qualified Code: K92.2 - Gastrointestinal hemorrhage, unspecified gastrointestinal hemorrhage type Anum Reaves DO Jul 13, 2016 8:52 am
== END 2016-07-13 12:24 | disposition home or self-care (01) | DRG 378 ==
LOC: NEPE 20:37 → INTOOBSV 22:21 → NEDA 22:21 → OBSVTOIN 07-12 02:57 → NEDH 07-12 06:22 → N07B 07-12 17:22
PROVIDERS: ADMIT Hospitalist; ATTEND Hospitalist
PROC: 0DB48ZX Excision of Esophagogastric Junction, Via Natural or Artificial Opening Endoscopic, Diagnostic (ICD-10-PCS; 2016-07-12)
PROC: 30253N1 (ICD-10-PCS; principal; 2016-07-12 11:50)
DX: K92.1 Melena (principal); D62 Acute posthemorrhagic anemia; R57.9 Shock, unspecified; I95.9 Hypotension, unspecified; I42.9 Cardiomyopathy, unspecified; J44.9 Chronic obstructive pulmonary disease, unspecified; E11.9 Type 2 diabetes mellitus without complications; I25.810 Atherosclerosis of coronary artery bypass graft(s) without angina pectoris; K28.9 Gastrojejunal ulcer, unspecified as acute or chronic, without hemorrhage or perforation; E86.0 Dehydration; Z95.2 Presence of prosthetic heart valve; Z66 Do not resuscitate; E78.5 Hyperlipidemia, unspecified; I10 Essential (primary) hypertension; K92.0 Hematemesis; Z95.810 Presence of automatic (implantable) cardiac defibrillator; Z95.1 Presence of aortocoronary bypass graft; Z79.02 Long term (current) use of antithrombotics/antiplatelets; Z79.4 Long term (current) use of insulin; F17.210 Nicotine dependence, cigarettes, uncomplicated
CPT/HCPCS: 36430; 71010; 80048; 82948; 83735; 84484; 85014; 85018; 85025; 85027; 85610; 85730; 86850; 86900; 86901; 86920; 88305; 93005; 96365; 96372; 96375; C9113; G0378; J1815; J2405; J7030; J7042; P9016

== ENCOUNTER 2017-01-23 21:45 | Emergency (ER) | payer MEDICARE, OTHER ==
[~2017-01-23] VITALS: Ht 167.6 cm; Wt 77.5 kg
[~2017-01-23 21:45] MED LIST: ATOR20TA15 PO; DIAZ5TAB PO; FURO20TA PO; GABA400C5 PO; LANTUS2P; LISI10TA3 PO; METO25TA3 PO; NOVOINJ3 SQ; OXYC-392 PO; PANT40TA3 PO
[2017-01-23 22:00] VITALS: BP 140/67; PULSE 82; RESP 18; TEMP 98; O2SAT 94
[2017-01-23 22:15] VITALS: O2SAT 89
[2017-01-23] MEDS ORDERED: FUROSEMIDE 40 MG/4 ML VIAL IVP ONE (22:15)
[2017-01-23] MEDS ORDERED: SODIUM CHLORIDE 0.9% FLUSH 10 ML FLUSH IVF PRN (22:15)
[2017-01-23] MEDS ORDERED: RESP: ALBUTEROL 2.5 MG/IPRATROPIUM 0.5 MG NEB (SCH) INH ONE (22:15)
--- NOTE | 2017-01-23 22:21 | PD ---
HPI Chief Complaint: General Weakness Time Seen by Provider: 22:13 Travel History International Travel<30 days: No Contact w/Intl Traveler<30days: No Traveled to known affect area: No History of Present Illness HPI 76-year-old female presents the emergency Department with complaints of increasing generalized weakness for the past 2-3 days. Patient has a history of CABG in 2013 at [facility], as well as history of endarterectomy on the left approximately 10 years ago. 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 Patient is a lifelong smoking history and continues to smoke a pack and a half of cigarettes per day. Patient states currently her pain in the lower extremities is 5 out of 10 but worse with any pressure or movement. Patient is currently being treated by home health wound care, last seen yesterday. Patient has had mild chills but denies fever, has nausea and loss of appetite, but no vomiting, diarrhea, or urinary complaints. Patient denies shortness of breath but just feels weak. Patient has no headache, but is complaining of intermittent pain in the neck. She denies cough or wheezing. Patient lives on her own. Patient is an insulin-dependent diabetic. She has a history of GERD. She has no known drug allergies. PFSH Past Medical History High Cholesterol: Yes Diabetes: Yes Patient Takes Glucophage: No Hypertension: Yes Tetanus Vaccination: Unknown Influenza Vaccination: No Past Surgical History Cardiac Surgery: Yes (OPEN HEART 2012, PACEMAKER WITH DEFIBULATOR) Pacemaker: Yes (WITH DEFIBULATOR) Other Surgery: Yes (endarterectomy) Social History Alcohol Use: No Tobacco Use: Yes Substance Use: No Allergies-Medications (Allergen,Severity, Reaction): Coded Allergies: No Known Allergies (Unverified , 01/23/17) Reported Meds & Prescriptions Reported Meds & Active Scripts Active Pantoprazole (Pantoprazole Sodium) 40 Mg Tab 40 Mg PO Q12HR 30 Days Reported Lantus Inj (Insulin Glargine) 100 Unit/Ml Inj Novolog Flexpen Inj (Insulin Aspart) 300 Unit/3 Ml Pen 1 Units SQ Gabapentin 400 Mg Cap 400 Cap PO HS Atorvastatin (Atorvastatin Calcium) 20 Mg Tab 20 Mg PO HS Furosemide 20 Mg Tab 20 Mg PO BID Lisinopril 10 Mg Tab 10 Mg PO DAILY Metoprolol Tartrate 25 Mg Tab 25 Mg PO BID Diazepam 5 Mg Tab 5 Mg PO BID PRN Oxycodone (Oxycodone HCl) 5 Mg Tab 5 Mg PO Q4H PRN Review of Systems ROS Limitations: Poor Historian Except as stated in HPI: all other systems reviewed are Neg General / Constitutional: Positive: Chills, No: Fever HENT: Positive: Lightheadedness, Neck Pain (see history present illness.), No : Headaches, Vertigo, Sore Throat, Rhinitis, Rhinorrhea, Congestion, Nosebleed, Neck Stiffness, Ear Discharge, Earache Cardiovascular: No: Chest Pain or Discomfort, Palpitations, Irregular Rhythm, Tachycardia, Diaphoresis, Syncope, Dyspnea on exertion, Claudication Respiratory: No: Cough, Shortness of Breath, Wheezing Gastrointestinal: Positive: Nausea, Loss of Appetite, No: Vomiting, Diarrhea, Abdominal Pain, Hematemesis, Hematochezia, Constipation, Changes in Bowel Habits , Indigestion, Dysphagia Genitourinary: No: Urgency, Frequency, Dysuria Musculoskeletal: Positive: Myalgias, Arthralgias, Limited ROM, Weakness, Cramping, Edema Skin: No Rash, No Dryness, No Lesions Physical Exam Narrative GENERAL: Patient is moderately obese. She appears in no obvious distress. SKIN: Warm and dry. Somewhat poor pallor. Decreased turgor with mild tenting. No obvious signs of cellulitis to either lower extremity, however dressings were not removed, as there is no obvious increased induration or warmth appreciated. HEAD: Atraumatic. Normocephalic. EYES: Pupils equal and round. No scleral icterus. No injection or drainage. ENT: No nasal bleeding or discharge. Mucous membranes pink and moist. Pharynx is clear. Airway is patent. NECK: Trachea midline. No JVD. Supple and nontender. CARDIOVASCULAR: Regular rate and rhythm. No murmurs gallops or rubs appreciated. RESPIRATORY: No accessory muscle use. Clear to auscultation. Breath sounds equal bilaterally. GASTROINTESTINAL: Abdomen soft, non-tender, nondistended. Hepatic and splenic margins not palpable. MUSCULOSKELETAL: Extremities without clubbing, cyanosis, with 1+ edema to both feet from mid galicia down. No obvious deformities. NEUROLOGICAL: Awake and alert. No obvious cranial nerve deficits. Motor grossly within normal limits. Five out of 5 muscle strength in the arms and legs. Normal speech. PSYCHIATRIC: Appropriate mood and affect; insight and judgment normal. Data Data Last Documented VS Vital Signs Date Time Temp Pulse Resp B/P Pulse Ox O2 Delivery O2 Flow Rate FiO2 01/23/17 22:38 95 Nasal Cannula 2.00 01/23/17 22:00 98.0 82 18 140/67 Orders Complete Blood Count With Diff (01/23/17 22:10) Comprehensive Metabolic Panel (01/23/17 22:10) B-Type Natriuretic Peptide (01/23/17 22:10) Act Partial Throm Time (Ptt) (01/23/17 22:10) Prothrombin Time / Inr (Pt) (01/23/17 22:10) Magnesium (Mg) (01/23/17 22:10) Ckmb (Isoenzyme) Profile (01/23/17 22:10) Troponin I (01/23/17 22:10) Urinalysis - C+S If Indicated (01/23/17 22:10) Iv Access Insert/Monitor (01/23/17 22:10) Electrocardiogram (01/23/17 22:10) Ecg Monitoring (01/23/17 22:10) Oximetry (01/23/17 22:10) Oxygen Administration (01/23/17 22:10) Chest, Single Ap (01/23/17 22:10) Sodium Chloride 0.9% Flush (Ns Flush) (01/23/17 22:15) Furosemide Inj (Lasix Inj) (01/23/17 22:15) Albuterol-Ipratropium Neb (Duoneb Neb) (01/23/17 22:15) MDM Medical Decision Making Medical Screen Exam Complete: Yes Emergency Medical Condition: Yes Medical Record Reviewed: Yes Differential Diagnosis Neuropathy. Vascular insufficiency of lower extremities. Generalized weakness. Electronic imbalance. Dehydration. Depression. Narrative Course Patient is medically stable at time of exam. Labs ordered including CBC, CMP, urinalysis, cardiac panel, and lipase. EKG is performed. Chest x-ray showed no acute process. 2300 hrs. labs are still pending, and care of the patient is turned over Dr. Talley. Condition: Stable Nando Barahona Jan 23, 2017 22:21
[2017-01-23 22:38] VITALS: O2SAT 95
--- NOTE | 2017-01-23 22:43 | RADRPT ---
EXAM DATE/TIME: 01/23/2017 22:10 [facility] COMPARISON: CHEST SINGLE AP, July 11, 2016, 21:04. INDICATIONS : Shortness of breath. MEDICAL HISTORY : Hypercholesterolemia. Hypertension Diabetes, smoker. SURGICAL HISTORY : CABG. Pacemaker. ENCOUNTER: Initial ACUITY: 1 day PAIN SCORE: 0/10 LOCATION: Bilateral chest FINDINGS: A single view of the chest demonstrates the lungs to be symmetrically aerated without evidence of mas s, infiltrate or effusion. The cardiomediastinal contours are unremarkable. Status post CABG. Left-s ided defibrillator with 2 intact leads. Osseous structures are intact. CONCLUSION: No acute disease. Beck Espino MD on January 23, 2017 at 22:41 Board Certified Radiologist. This report was verified electronically.
[2017-01-23 22:56] LABS: AUTOMATED NEUTROPHIL # 5.8 TH/MM3 (1.8-7.7); BASOPHIL # 0.1 TH/MM3 (0-0.2); BASOPHIL % 0.7 % (0.0-2.0); EOSINOPHIL % 0.7 % (0.0-4.0); HEMATOCRIT 40.7 % (35.0-46.0); HEMO FLAGS DIFF FINAL; LYMPH % 11.3 % (9.0-44.0); LYMPHOCYTE # 0.8 TH/MM3 (1.0-4.8); MEAN CELL VOLUME 97.4 FL (80.0-100.0); MEAN CORPUSCULAR HEMOGLOBIN 31.6 PG (27.0-34.0); MEAN CORPUSCULAR HGB CONC 32.4 % (32.0-36.0); MONO % 4.5 % (0.0-8.0); NEUT % 82.8 % (16.0-70.0); PLATELET COUNT 192 TH/MM3 (150-450); RED BLOOD COUNT 4.18 MIL/MM3 (4.00-5.30); RED CELL DISTRIBUTION WIDTH 16.6 % (11.6-17.2)
[2017-01-23 23:00] VITALS: BP 150/64; PULSE 80; RESP 18; O2SAT 93
[2017-01-23 23:03] LABS: ALT (GPT) 23 U/L (10-53); ANION GAP 7 MEQ/L (5-15); AST (GOT) 34 U/L (15-37); BICARBONATE 29.6 MEQ/L (21.0-32.0); BLOOD UREA NITROGEN 28 MG/DL (7-18); CHLORIDE 100 MEQ/L (98-107); GLOMERULAR FILTRATION RATE 40 ML/MIN (>89); MAGNESIUM 2.5 MG/DL (1.5-2.5); POTASSIUM 4.7 MEQ/L (3.5-5.1); SODIUM (NA) 137 MEQ/L (136-145)
[2017-01-23 23:06] LABS: ALKALINE PHOSPHATASE 120 U/L (45-117); CREATINE KINASE 233 U/L (26-192); TOTAL BILIRUBIN ADULT 1.3 MG/DL (0.2-1.0)
[2017-01-23 23:14] LABS: APTT (PATIENT) 32.4 SEC (24.3-30.1); PROTHROMBIN TIME - PATIENT 11.5 SEC (9.8-11.6)
--- NOTE | 2017-01-23 23:45 | PD ---
Physical Exam Narrative General: The patient is a well-developed well-nourished female in no acute distress. Head and Neck exam: Head is normocephalic atraumatic. Eyes: EOMI, pupils are equal round and reactive to light. Nose: Midline septum with pink mucous membranes Mouth: Dentition unremarkable. Moist mucus membranes. Posterior oropharynx is not erythematous. No tonsillar hypertrophy. Uvula midline. Airway patent. Neck: No palpable lymphadenopathy. No nuchal rigidity. No thyromegaly. Cardiovascular: Regular rate and rhythm without murmurs, gallops, or rubs. Lungs: Clear to auscultation bilaterally. No wheezes, rhonchi, or rales. Abdomen: Soft, with suprapubic tenderness on palpation, sensation of needing to urinate with pressure on her bladder, no other tenderness on palpation of the other quadrants of the abdomen. No guarding, rebound, or rigidity. No tenderness on palpation of McBurney's point. Normal bowel sounds are audible. Negative Wendover sign. Extremities: No clubbing or cyanosis. The patient has trace pedal edema bilateral lower extremities. 2+ pulses in all 4 extremities. The patient on examination of bilateral feet along the ankles and feet bilaterally is noted to have erythema. She is unsure whether this is better or worse compared to previously. She is unsure whether she has on any antibiotic at this time. She reports that she has a home health nurse helps her at home. She reports that her dressings were last changed yesterday. She reports that she began to have weeping of her legs approximately a week ago. Back: No costovertebral angle tenderness to palpation. Neurologic Exam: Grossly nonfocal. Skin Exam: No rash noted. Intact skin that is warm and dry. Data Data Last Documented VS Vital Signs Date Time Temp Pulse Resp B/P Pulse Ox O2 Delivery O2 Flow Rate FiO2 01/23/17 23:00 80 18 150/64 93 Nasal Cannula 2 01/23/17 22:00 98.0 Orders Complete Blood Count With Diff (01/23/17 22:10) Comprehensive Metabolic Panel (01/23/17 22:10) B-Type Natriuretic Peptide (01/23/17 22:10) Act Partial Throm Time (Ptt) (01/23/17 22:10) Prothrombin Time / Inr (Pt) (01/23/17 22:10) Magnesium (Mg) (01/23/17 22:10) Ckmb (Isoenzyme) Profile (01/23/17 22:10) Troponin I (01/23/17 22:10) Urinalysis - C+S If Indicated (01/23/17 22:10) Iv Access Insert/Monitor (01/23/17 22:10) Electrocardiogram (01/23/17 22:10) Ecg Monitoring (01/23/17 22:10) Oximetry (01/23/17 22:10) Oxygen Administration (01/23/17 22:10) Chest, Single Ap (01/23/17 22:10) Sodium Chloride 0.9% Flush (Ns Flush) (01/23/17 22:15) Furosemide Inj (Lasix Inj) (01/23/17 22:15) Albuterol-Ipratropium Neb (Duoneb Neb) (01/23/17 22:15) CKMB (01/23/17 22:15) CKMB% (01/23/17 22:15) Ceftriaxone Inj (Rocephin Inj) (01/24/17 00:00) Urine Culture (01/23/17 23:30) Labs Laboratory Tests Test 01/23/17 01/23/17 22:15 23:30 White Blood Count 7.0 TH/MM3 Red Blood Count 4.18 MIL/MM3 Hemoglobin 13.2 GM/DL Hematocrit 40.7 % Mean Corpuscular Volume 97.4 FL Mean Corpuscular Hemoglobin 31.6 PG Mean Corpuscular Hemoglobin 32.4 % Concent Red Cell Distribution Width 16.6 % Platelet Count 192 TH/MM3 Mean Platelet Volume 7.8 FL Neutrophils (%) (Auto) 82.8 % Lymphocytes (%) (Auto) 11.3 % Monocytes (%) (Auto) 4.5 % Eosinophils (%) (Auto) 0.7 % Basophils (%) (Auto) 0.7 % Neutrophils # (Auto) 5.8 TH/MM3 Lymphocytes # (Auto) 0.8 TH/MM3 Monocytes # (Auto) 0.3 TH/MM3 Eosinophils # (Auto) 0.0 TH/MM3 Basophils # (Auto) 0.1 TH/MM3 CBC Comment DIFF FINAL Differential Comment Prothrombin Time 11.5 SEC Prothromb Time International 1.0 RATIO Ratio Activated Partial 32.4 SEC Thromboplast Time Sodium Level 137 MEQ/L Potassium Level 4.7 MEQ/L Chloride Level 100 MEQ/L Carbon Dioxide Level 29.6 MEQ/L Anion Gap 7 MEQ/L Blood Urea Nitrogen 28 MG/DL Creatinine 1.30 MG/DL Estimat Glomerular Filtration 40 ML/MIN Rate Random Glucose 102 MG/DL Calcium Level 9.1 MG/DL Magnesium Level 2.5 MG/DL Total Bilirubin 1.3 MG/DL Aspartate Amino Transf 34 U/L (AST/SGOT) Alanine Aminotransferase 23 U/L (ALT/SGPT) Alkaline Phosphatase 120 U/L Total Creatine Kinase 233 U/L Creatine Kinase MB 4.0 NG/ML Creatine Kinase MB % 1.7 % Troponin I LESS THAN 0.02 NG/ML B-Type Natriuretic Peptide 132 PG/ML Total Protein 7.0 GM/DL Albumin 3.2 GM/DL Urine Color LIGHT-YELLOW Urine Turbidity CLEAR Urine pH 6.0 Urine Specific [place] 1.008 Urine Protein NEG mg/dL Urine Glucose (UA) NEG mg/dL Urine Ketones 10 mg/dL Urine Occult Blood TRACE Urine Nitrite NEG Urine Bilirubin NEG Urine Urobilinogen LESS THAN 2.0 MG/DL Urine Leukocyte Esterase LARGE Urine RBC 10 /hpf Urine WBC 43 /hpf Urine Squamous Epithelial <1 /hpf Cells Urine Transitional Epithelial <1 /hpf Cells Urine Renal Epithelial Cells 4 /hpf Urine Bacteria RARE /hpf Microscopic Urinalysis Comment CULTURE INDICATED MDM Medical Record Reviewed: Yes Supervised Visit with LUDIVINA: No Interpretation(s) Last Impressions Chest X-Ray 01/23/170 Signed Impressions: Service Date/Time: Monday, January 23, 2017 22:10 - CONCLUSION: No acute disease. Beck Espino MD Narrative Course During the course of the patients emergency department visit, the patients history, examination, and differential diagnosis were reviewed with the patient. The patient had IV access obtained and blood work sent for analysis. The patient was initially evaluated by Nando, the physician vet assistant. Please see his complete history and physical. The patient's case was checked out to me at the conclusion of his shift. The patient reports a history of over the last couple of days having generalized weakness, decreased appetite, and chills. She denies having any known fevers, cough or congestion. She denies having any chest pain, chest pressure, or shortness of breath. She denies having any vomiting or diarrhea. She denies having any change in her urinary frequency although she reports that she seems to have less urine output. She reports that she is chronically incontinent of urine and uses a brief. The patient was initially provided a DuoNeb 1, Lasix 40 mg IV for lower extremity edema. The patients laboratory studies were reviewed and remarkable for a white count of 7, hemoglobin 13.2, platelets 192 with 82.8 neutrophils, CMP is remarkable for a BUN of 28, creatinine 1.30, GFR 40, total bilirubin 1.3, alkaline phosphatase 120, CPK 233 with an MB percent of 1.7, troponin I less than 0.02, BNP is 132, INR 1.0, urinalysis revealed evidence of urinary tract infection. Radiology studies were reviewed and remarkable for a chest x-ray that shows no acute disease. The patient will be discharged home with a prescription for Keflex. The patient is resting comfortably and feels better, is alert and in no distress. The patients results and examination findings were discussed with the patient. The repeat examination is unremarkable and benign. The history, exam, diagnostic testing, and current condition do not suggest any significant pathology to warrant further testing, continued ED treatment, admission, or surgical evaluation at this point. The vital signs have been stable. The patient does not have uncontrollable pain, intractable vomiting, or other significant symptoms. The patient's condition is stable and appropriate for discharge. The patient will pursue further outpatient evaluation with a primary care physician or other designated or consulting physician as indicated in the discharge instructions. The patient expressed understanding and was agreeable with this plan. Diagnosis Primary Impression: Generalized weakness Additional Impression: Urinary tract infection Qualified Code: N30.00 - Acute cystitis without hematuria Referrals: Primary Care Physician 2 days Patient Instructions: General Instructions, Urinary Tract Infection in Women ( ED) Med/Other Pt SpecificInfo: Prescription(s) given Scripts Cephalexin (Keflex)500 Mg [id number] Mg PO Q8H #30 CAP Ref 0 Prov:Maryuri Talley MD 01/24/17 Disposition: 01 DISCHARGE HOME Condition: Stable Maryuri Talley MD Jan 23, 2017 23:45
[2017-01-23 23:57] LABS: BACTERIA, URINE RARE /hpf; BLOOD, URINE TRACE (NEG); GLUCOSE,URINE NEG (NEG); KETONE, URINE 10 mg/dL (NEG); NITRITE,URINE NEG (NEG); RENAL EPITHELIAL CELLS 4 /hpf; SQUAMOUS EPITHELIAL CELL URINE <1 /hpf (0-5); TRANSITIONAL EPI CELLS, URINE <1 /hpf; URINE COLOR LIGHT-YELLOW (YELLW/STRAW)
[2017-01-23 23:58] LABS: COMMENT (UR) CULTURE INDICATED; CULTURE IF INDICATED CULTURE INDICATED
[2017-01-24] MEDS ORDERED: cefTRIAXone INJ 1,000 MG in SODIUM CHLORIDE 0.9% INJ 100 ML IV ONE ×2
[2017-01-24] MEDS ORDERED: CEPH-460 PO (00:01)
[2017-01-24 00:34] VITALS: BP 126/57
--- NOTE | 2017-01-24 14:14 | EKG ---
Date Performed: 01/23/2017 Time Performed: 22:36:11 PTAGE: 76 years EKG: Underlying atrial rhythm appears to be sinus 100% ventricular pacing but the atrium may not be tracked properly Clinical correlation needed regarding how the pacemaker is programmed PREVIOUS TRACING : 07/11/2016 21.58 DOCTOR: Ishmael Talley Interpretating Date/Time 01/24/2017 14:13:53
== END 2017-01-24 01:15 | disposition home or self-care (01) ==
LOC: NEPC 21:45
DX: R53.1 Weakness (principal); N39.0 Urinary tract infection, site not specified; B96.20 Unspecified Escherichia coli [E. coli] as the cause of diseases classified elsewhere; R42 Dizziness and giddiness; M54.2 Cervicalgia; R11.0 Nausea; M79.1 Myalgia; E11.9 Type 2 diabetes mellitus without complications; I10 Essential (primary) hypertension
CPT/HCPCS: 71010; 80053; 81001; 82550; 82552; 83735; 83880; 84484; 85025; 85610; 85730; 87077; 87086; 87186; 93005; 94664; 96365; 96375; 99285; J0696; J1940